=== PATIENT | male | born 1940 | race Caucasian/White ===

== ENCOUNTER 2018-07-25 18:20 | Inpatient (IN) | payer OTHER ==
--- NOTE | 2018-07-25 18:38 | PDOC ---
Rapid Medical Evaluation Chief Complaint: Injury Time Seen by Provider: 07/25/18 18:33 Medical Evaluation: Allergies Allergy/AdvReac Type Severity Reaction Status Date / Time No Known Allergies Allergy Verified 09/12/15 22:49 07/25/18 18:36 The patient c/o: cough x 1 week, went to md office today and was tachycardic and weak Patient on brief exam: 101.2, tachy, 92 on RA Patient ordered for: septic w/u Patient to proceed to the ED Discharge Disposition - Diagnosis Fever - Discharge Dispostion Condition at time of disposition: Stable - Referrals Referrals: Sabrina Vides MD [Primary Care Provider] - - Patient Instructions - Post Discharge Activity
[2018-07-25] MEDS ORDERED: SODIUM CHLORIDE 1,000 ML IV STA (18:40)
[2018-07-25] MEDS ORDERED: ACETAMINOPHEN 500 MG TABLET (FP) PO ONE (18:40)
[2018-07-25] MEDS ORDERED: AZITHROMYCIN IVPB 500 MG in DEXTROSE 5%-WATER - 250 ML IVPB ONE (20:18)
[2018-07-25] MEDS ORDERED: CEFTRIAXONE 1 GM in DEXTROSE 5%-WATER - 100 ML IVPB ONE (20:18)
[2018-07-25] MEDS ORDERED: CEFTRIAXONE 1 GM/50 ML BAG ONE (20:50)
[2018-07-25] MEDS ORDERED: AZITHROMYCIN IVPB 500 MG/250 ML BAG IVPB ONE (20:50)
[2018-07-25 20:51] LABS: BASO % 0.4 % (0-2.0); EOS % 0.1 % (0-4.5); HEMATOCRIT 42.5 % (35.4-49); HEMOGLOBIN 14.4 GM/dL (11.7-16.9); LYMPH % 23.5 % (8-40); MCH 31.5 pg (25.7-33.7); MCHC 33.8 g/dl (32.0-35.9); MEAN CELL VOLUME 93.2 fl (80-96); MEAN PLT VOLUME 8.5 fl (7.5-11.1); MONO % 11.2 % (3.8-10.2); NEUT % 64.8 % (42.8-82.8); PLATELET COUNT 159 K/MM3 (134-434); RBC 4.56 M/mm3 (4.00-5.60); RDW 13.5 % (11.9-15.9); WHITE BLOOD COUNT 7.9 K/mm3 (4.0-10.0)
[2018-07-25 20:56] LABS: VENOUS PC02 46.6 mmHg (41-51); VENOUS PH 7.39 (7.31-7.41); VENOUS PO2 31.3 mmHg (30-40)
[2018-07-25 21:15] LABS: INR 1.13 (0.83-1.09); PROTHROMBIN TIME (PATIENT) 13.4 SEC (9.7-13.0)
[2018-07-25 21:17] LABS: ACTIVATED PTT 35.3 SECONDS (25.2-36.5)
[2018-07-25 21:25] LABS: ALBUMIN 3.8 g/dl (3.4-5.0); BILIRUBIN,TOTAL 0.9 mg/dL (0.2-1); CREATININE 1.6 mg/dL (0.55-1.3); POTASSIUM 4.6 mmol/L (3.5-5.1); TOT PROT 7.5 g/dl (6.4-8.2)
[2018-07-26] MEDS ORDERED: PATIENT'S OWN MEDICATION (NON-FORMULARY) (Insulin (Novolog 70/30) [Novolog Mix 70/30 Flexp SQ SCH (00:45)
--- NOTE | 2018-07-26 00:47 | HP ---
CHIEF COMPLAINT: mid back pain PCP:Dr. Melendez HISTORY OF PRESENT ILLNESS: Mr. Govea is a 78 year old male with past medical history significant for hypertension, coronary artery disease, COPD, and NIDDM who presents to the emergency with mid back pain. He was found to have a fever of 101.2, tachycardia and mild hypoxemia on room air of 92% CT scan of chest demonstrated a focal consolidation in the anterior segment of the right upper lobe and consistent with a right lobe pneumonia. He was also found to have multiple subpleural bulla in the upper lobes more pronounced on the right side. He was given a dose of IV azithromycin and ceftriaxone. Labs notable for a normal WBC and lactic acid of 2.2, with repeat lactic acid of 1.7, and creatinine 1.6.He also complained of abdominal tenderness on light palpationsand abdomen was distended. CT scan of abdomen and pelvis showed no bowel distention, fatty liver or no acute diverticulitis or acute findings. He is being admitted to the Medicine Service for further medical treatment. Recent Travel:denies PAST MEDICAL HISTORY: Hypertension Coronary artery disease COPD NIDDM PAST SURGICAL HISTORY: denies Social History: Smoking:denies Alcohol:yes Drugs: denies Family History:noncontributory Allergies No Known Allergies Allergy (Verified 09/12/15 22:49) HOME MEDICATIONS: Home Medications Medication Instructions Recorded Atorvastatin Ca [Lipitor] 40 mg PO HS 08/06/14 Clopidogrel Bisulfate [Clopidogrel] 75 mg PO DAILY 08/06/14 Glipizide [Glipizide ER] 5 mg PO DAILY 08/06/14 Insulin (Novolog 70/30) [Novolog 10 units SQ ASDIR 08/06/14 Mix 70/30 Flexpen -] Losartan Potassium 100 mg PO DAILY 08/06/14 Tamsulosin HCl 0.4 mg PO DAILY 08/06/14 REVIEW OF SYSTEMS CONSTITUTIONAL: Absent: fever, chills, diaphoresis, generalized weakness, malaise, loss of appetite, weight change HEENT: Absent: rhinorrhea, nasal congestion, throat pain, throat swelling, difficulty swallowing, mouth swelling, ear pain, eye pain, visual changes CARDIOVASCULAR: Absent: chest pain, syncope, palpitations, irregular heart rate, lightheadedness , peripheral edema,tachycardia RESPIRATORY: Absent: cough, shortness of breath, dyspnea with exertion, orthopnea, wheezing, stridor, hemoptysis GASTROINTESTINAL: Absent: abdominal pain, abdominal distension, nausea, vomiting, diarrhea, constipation, melena, hematochezia GENITOURINARY: Absent: dysuria, frequency, urgency, hesitancy, hematuria, flank pain, genital pain MUSCULOSKELETAL: Absent: myalgia, arthralgia, joint swelling, mid back pain, neck pain SKIN: Absent: rash, itching, pallor HEMATOLOGIC/IMMUNOLOGIC: Absent: easy bleeding, easy bruising, lymphadenopathy, frequent infections ENDOCRINE: Absent: unexplained weight gain, unexplained weight loss, heat intolerance, cold intolerance NEUROLOGIC: Absent: headache, focal weakness or paresthesias, dizziness, unsteady gait, seizure, mental status changes, bladder or bowel incontinence PSYCHIATRIC: Absent: anxiety, depression, suicidal or homicidal ideation, hallucinations. PHYSICAL EXAMINATION Vital Signs - 24 hr 07/25/18 07/26/18 18:33 00:34 Temperature 101.2 F H Pulse Rate 131 H Pulse Rate [ 108 H Left] Respiratory 16 26 H Rate Blood Pressure 119/78 Blood Pressure 137/77 [Left] O2 Sat by Pulse 92 L 95 Oximetry (%) GENERAL: awake, alert, and fully oriented no acute distress HEAD: normal EYES: pupils equal, round and reactive to light EARS, NOSE, THROAT: ears normal, nares patent NECK: normal range of motion LUNGS: crackles present to right side no wheezes no use of accessory muscles HEART: rate regular and tachycardic normal S1 and S2 ABDOMEN: soft nontender not distended normoactive bowel sounds MUSCULOSKELETAL: normal range of motion at all joints UPPER EXTREMITIES: 2+ pulses, warm LOWER EXTREMITIES: 2+ pulses, warm well-perfused no pitting edema NEUROLOGICAL: no neuro focal deficits PSYCHIATRIC: cooperative good eye contact SKIN: warm,dry and no lesions Laboratory Results - last 24 hr 07/25/18 07/25/18 07/25/18 18:38 20:31 20:31 WBC 7.9 RBC 4.56 Hgb 14.4 Hct 42.5 MCV 93.2 MCH 31.5 MCHC 33.8 RDW 13.5 Plt Count 159 MPV 8.5 Absolute Neuts (auto) 5.1 Neutrophils % 64.8 D Lymphocytes % 23.5 D Monocytes % 11.2 H Eosinophils % 0.1 D Basophils % 0.4 Nucleated RBC % 0 PT with INR 13.40 H INR 1.13 H PTT (Actin FS) 35.3 VBG pH POC VBG pCO2 POC VBG pO2 VBG HCO3 VBG O2 Sat (Brian) VBG Base Excess Sodium Potassium Chloride Carbon Dioxide Anion Gap BUN Creatinine Est GFR (CKD-EPI)AfAm Est GFR (CKD-EPI)NonAf Random Glucose Lactic Acid 2.2 H* Calcium Total Bilirubin AST ALT Alkaline Phosphatase Troponin I Total Protein Albumin 07/25/18 07/25/18 07/25/18 20:31 20:31 20:31 WBC RBC Hgb Hct MCV MCH MCHC RDW Plt Count MPV Absolute Neuts (auto) Neutrophils % Lymphocytes % Monocytes % Eosinophils % Basophils % Nucleated RBC % PT with INR INR PTT (Actin FS) VBG pH 7.39 POC VBG pCO2 46.6 POC VBG pO2 31.3 VBG HCO3 27.4 VBG O2 Sat (Brian) 54.2 L VBG Base Excess 2.2 H Sodium 136 Potassium 4.6 Chloride 99 Carbon Dioxide 28 Anion Gap 9 BUN 20 H Creatinine 1.6 H Est GFR (CKD-EPI)AfAm 47.46 Est GFR (CKD-EPI)NonAf 40.95 Random Glucose 201 H Lactic Acid Calcium 9.0 Total Bilirubin 0.9 AST 127 H ALT 73 H Alkaline Phosphatase 120 H Troponin I < 0.02 Total Protein 7.5 Albumin 3.8 07/25/18 22:10 WBC RBC Hgb Hct MCV MCH MCHC RDW Plt Count MPV Absolute Neuts (auto) Neutrophils % Lymphocytes % Monocytes % Eosinophils % Basophils % Nucleated RBC % PT with INR INR PTT (Actin FS) VBG pH POC VBG pCO2 POC VBG pO2 VBG HCO3 VBG O2 Sat (Brian) VBG Base Excess Sodium Potassium Chloride Carbon Dioxide Anion Gap BUN Creatinine Est GFR (CKD-EPI)AfAm Est GFR (CKD-EPI)NonAf Random Glucose Lactic Acid 1.7 Calcium Total Bilirubin AST ALT Alkaline Phosphatase Troponin I Total Protein Albumin ASSESSMENT/PLAN: 78 year old male with past medical history significant for hypertension, coronary artery disease, COPD, and NIDDM who presented with mid back pain. He was found to have a fever of 101.2, tachycardia and mild hypoxemia on room air of 92% #1 Pneumonia(Community Acquired) Workup-CT scan of chest demonstrated a focal consolidation in the anterior segment of the right upper lobe and consistent with a right lobe pneumonia. He was also found to have multiple subpleural bulla in the upper lobes more pronounced the right side. He was given a dose of IV azithromycin and ceftriaxone. Labs notable for a normal WBC and lactic acid of 2.2 with repeat lactic acid of 1.7. - Continue with IV Azithromycin 250 mg daily and Ceftriaxone 1 mg daily - Tylenol prn for fever - Pulmonary -Dr. Hathaway consulted #2 Hypertension Controlled Continue with losartan #3 ? Chronic Renal Insufficiency Likely Secondary to Diabetes Creatinine 1.6. Continue to monitor closely as patient is on arb #4 Coronary Artery Disease Currently asymptomatic of chest pain. Troponin is normal. Continue with plavix and statin. #5 Hyperlipidemia -Continue with statin therapy #6 NIDDM Accucheks before meals and at bedtime Insulin(Novolin) as per sliding scale Check hemoglobin a1c #7 BPH Continue with tamulosin FEN ADA,low sodium diet DVT TEDS,SCD's Visit type - Emergency Visit Emergency Visit: Yes ED Registration Date: 07/25/18 Care time: The patient presented to the Emergency Department on the above date and was hospitalized for further evaluation of their emergent condition. - New Patient This patient is new to me today: Yes Date on this admission: 07/26/18 - Critical Care Critical Care patient: No
--- NOTE | 2018-07-26 00:57 | PDOC ---
Documentation entered by Velma Fraser SCRIBE, acting as scribe for Gretchen Herrera DO. Gretchen Herrera DO: This documentation has been prepared by the johny, Velma Fraser SCRIBE, under my direction and personally reviewed by me in its entirety. I confirm that the documentation accurately reflects all work , treatment, procedures, and medical decision making performed by me. History of Present Illness - General Chief Complaint: SIRS, Suspected/Possible Stated Complaint: REF BY DOCTOR Time Seen by Provider: 07/25/18 18:33 History Source: Patient Exam Limitations: No Limitations - History of Present Illness Initial Comments: 07/25/18 19:54 The patient is a 78 year old male with reported past medical history significant for HTN, CAD, COPD, and DM presents to the emergency department with back pain. The patient presents with lower back pain, localized to the mid back. Denies fever, chills, cough, nausea, vomiting. Allergies: NKDA Social history: Denies the use of tobacco, or recreational drugs. Reports the use of alcohol. Surgical history: None reported. PCP: Dr. Vides. Past History - Past Medical History Allergies/Adverse Reactions: Allergies Allergy/AdvReac Type Severity Reaction Status Date / Time No Known Allergies Allergy Verified 09/12/15 22:49 Home Medications: Ambulatory Orders Atorvastatin Ca [Lipitor] 40 mg PO HS 08/06/14 Clopidogrel Bisulfate [Clopidogrel] 75 mg PO DAILY 08/06/14 Glipizide [Glipizide ER] 5 mg PO DAILY 08/06/14 Insulin (Novolog 70/30) [Novolog Mix 70/30 Flexpen -] 10 units SQ ASDIR Losartan Potassium 100 mg PO DAILY 08/06/14 Tamsulosin HCl 0.4 mg PO DAILY 08/06/14 Cardiac Disorders: Yes (CAD) COPD: Yes Diabetes: Yes Disorders: Yes (BPH) HTN: Yes Hypercholesterolemia: Yes - Suicide/Smoking/Psychosocial Hx Smoking History: Never smoked Have you smoked in the past 12 months: No Information on smoking cessation initiated: No Hx Alcohol Use: No Drug/Substance Use Hx: No Substance Use Type: Alcohol Hx Substance Use Treatment: No Review of Systems - Review of Systems Able to Perform ROS?: Yes Comments:: 07/25/18 19:35 GENERAL/CONSTITUTIONAL: No fever or chills. No weakness. HEAD, EYES, EARS, NOSE AND THROAT: No change in vision. No ear pain or discharge. No sore throat. GASTROINTESTINAL: No nausea, vomiting, diarrhea or constipation. GENITOURINARY: No dysuria, frequency, or change in urination. CARDIOVASCULAR: No chest pain or shortness of breath. RESPIRATORY: No cough, wheezing, or hemoptysis. MUSCULOSKELETAL: +lower back pain. No joint or muscle swelling or pain. No neck pain. SKIN: No rash NEUROLOGIC: No headache, vertigo, loss of consciousness, or change in strength/ sensation. ENDOCRINE: No increased thirst. No abnormal weight change. HEMATOLOGIC/LYMPHATIC: No anemia, easy bleeding, or history of blood clots. ALLERGIC/IMMUNOLOGIC: No hives or skin allergy. *Physical Exam - Vital Signs Last Vital Signs Temp Pulse Resp BP Pulse Ox 101.2 F H 131 H 16 119/78 92 L 07/25/18 18:33 07/25/18 18:33 07/25/18 18:33 07/25/18 18:33 07/25/18 18:33 - Physical Exam Comments: 07/25/18 19:35 GENERAL: Awake, in no acute distress HEAD: No signs of trauma EYES: PERRLA, EOMI, sclera anicteric, conjunctiva clear, visual acuity grossly intact ENT:. Moist mucosa NECK: Normal ROM, supple, no lymphadenopathy, JVD, or masses LUNGS: Breath sounds equal, No wheezes, Crackles right mid/base Normal work of breathing. HEART: Regular rate and rhythm, normal S1 and S2, no murmurs, rubs or gallops ABDOMEN: Soft, tenderness LLQ, normoactive bowel sounds. No guarding, no rebound. No masses. Non-distended. CHEST WALL: BACK: No midline tenderness. EXTREMITIES: Normal range of motion, no edema. No clubbing or cyanosis. No erythema, or tenderness NEUROLOGICAL: Alert, and oriented x4, Cranial nerves II through XII grossly intact. Normal speech, normal gait. 07/26/18 00:50 ED Treatment Course - LABORATORY CBC & Chemistry Diagram: 07/25/18 20:31 07/25/18 20:31 - ADDITIONAL ORDERS Additional order review: Laboratory Results 06/04/19 06/04/19 06/04/19 22:10 20:31 20:31 PT with INR INR PTT (Actin FS) VBG pH POC VBG pCO2 POC VBG pO2 VBG HCO3 VBG O2 Sat (Brian) VBG Base Excess Sodium 136 Potassium 4.6 Chloride 99 Carbon Dioxide 28 Anion Gap 9 BUN 20 H Creatinine 1.6 H Est GFR (CKD-EPI)AfAm 47.46 Est GFR (CKD-EPI)NonAf 40.95 Random Glucose 201 H Lactic Acid 1.7 Calcium 9.0 Total Bilirubin 0.9 AST 127 H ALT 73 H Alkaline Phosphatase 120 H Troponin I < 0.02 Total Protein 7.5 Albumin 3.8 07/25/18 07/25/18 07/25/18 20:31 20:31 18:38 PT with INR 13.40 H INR 1.13 H PTT (Actin FS) 35.3 VBG pH 7.39 POC VBG pCO2 46.6 POC VBG pO2 31.3 VBG HCO3 27.4 VBG O2 Sat (Brian) 54.2 L VBG Base Excess 2.2 H Sodium Potassium Chloride Carbon Dioxide Anion Gap BUN Creatinine Est GFR (CKD-EPI)AfAm Est GFR (CKD-EPI)NonAf Random Glucose Lactic Acid 2.2 H* Calcium Total Bilirubin AST ALT Alkaline Phosphatase Troponin I Total Protein Albumin 07/25/18 20:31 RBC 4.56 MCV 93.2 MCHC 33.8 RDW 13.5 MPV 8.5 Neutrophils % 64.8 D Lymphocytes % 23.5 D Monocytes % 11.2 H Eosinophils % 0.1 D Basophils % 0.4 - RADIOLOGY Radiology Studies Ordered: Category Date Time Status ABDOMEN & PELVIS CT W/O CONTR [CT] Stat CT Scan 07/25/18 22:[address] WITHOUT CONTRAST [CT] Stat CT Scan 07/25/18 22:50 Taken - Medications Given in the ED: ED Medications Discontinued Medications Generic Name Dose Route Start Last Admin Trade Name Freq PRN Reason Stop Dose Admin Acetaminophen 975 mg 07/25/18 18:40 07/25/18 18:52 Tylenol - PO 07/25/18 18:41 975 mg ONCE ONE Administration Medical Decision Making - Critical Care Time Total Critical Care Time (minutes): 45 Critical Care Statement: The care of this patient involved high complexity decision making to prevent further life threatening deterioration of the patient 's condition and/or to evaluate & treat vital organ system(s) failure or risk of failure. - Medical Decision Making 07/26/18 00:52 78 yo male with fever ,cough,low back pain Chest x-ray, CT scan of the chest abdomen and pelvis performed and I significant for right-sided pulmonary infiltrates, in the setting likely consistent with community-acquired pneumonia Azithromycin as well as Rocephin IV given in the emergency department IV fluid normal saline 1 L bolus given as well, initial lactic acid 2.2 now decreased to 1.7 Renal insufficiency is close to baseline Case discussed with medical service for admission *DC/Admit/Observation/Transfer Diagnosis at time of Disposition: Pneumonia, Sepsis - Discharge Dispostion Condition at time of disposition: Stable Decision to Admit order: Yes - Referrals - Patient Instructions - Post Discharge Activity - Attestations Physician Attestion: 07/26/18 00:56 I, Dr Gretchen Herrera, attest that this document has been prepared under my direction and personally reviewed by me in its entirety. I further attest, that it accurately reflects all work, procedures and medical decision making performed by me.
[2018-07-26 06:22] VITALS: BMI 32.7
[2018-07-26] MEDS: glipiZIDE-XL 5 MG TAB.ER.24 PO SCH (06:49)
[2018-07-26] MEDS ORDERED: INSULIN SLIDING SCALE (NOVOLOG) 1 VIAL SQ SCH (07:00)
--- NOTE | 2018-07-26 08:32 | PN ---
Progress Note, Physician History of Present Illness: 78 year old male with past medical history significant for hypertension, coronary artery disease, COPD, and NIDDM who presented with mid back pain. He was found to have a fever of 101.2, tachycardia and mild hypoxemia on room air of 92% - Current Medication List Current Medications: Active Medications Atorvastatin Calcium (Lipitor -) 40 mg PO HS [facility] Clopidogrel Bisulfate (Plavix -) 75 mg PO DAILY [facility] Glipizide (Glucotrol Xl -) 5 mg PO AM [facility] Last Admin: 07/26/18 06:49 Dose: 5 mg Azithromycin 250 mg/ Dextrose 250 mls @ 250 mls/hr IVPB DAILY [facility] Ceftriaxone Sodium 1 gm/ (Dextrose) 100 mls @ 200 mls/hr IVPB DAILY [facility]; Protocol Insulin Aspart (Novolog Vial Sliding Scale -) 1 vial SQ BIDAC [facility]; Protocol Last Admin: 07/26/18 06:48 Dose: 2 units Losartan Potassium (Cozaar -) 100 mg PO DAILY [facility] Tamsulosin HCl (Flomax -) 0.4 mg PO DAILY@0830 [facility] - Objective Vital Signs: Vital Signs Temperature 99.2 F 07/26/18 06:11 Pulse Rate 97 H 07/26/18 06:11 Respiratory Rate 21 H 07/26/18 06:11 Blood Pressure 136/80 07/26/18 06:11 O2 Sat by Pulse Oximetry (%) 96 07/26/18 06:11 Cardiovascular: Yes: Tachycardia, S1, S2 Respiratory: Yes: Diminished, On Nasal O2, Rhonchi Gastrointestinal: Yes: Normal Bowel Sounds, Soft Labs: CBC, BMP 07/25/18 20:31 07/25/18 20:31 INR, PTT INR 1.13 (0.83-1.09) H 07/25/18 20:31 Problem List - Problems (1) Pneumonia Assessment/Plan: Workup-CT scan of chest demonstrated a focal consolidation in the anterior segment of the right upper lobe and consistent with a right lobe pneumonia. He was also found to have multiple subpleural bulla in the upper lobes more pronounced the right side. He was given a dose of IV azithromycin and ceftriaxone. Labs notable for a normal WBC and lactic acid of 2.2 with repeat lactic acid of 1.7. - Continue with IV Azithromycin 250 mg daily and Ceftriaxone 1 mg daily - Tylenol prn for fever - Pulmonary -Dr. Hathaway consulted -ID consult Code(s): J18.9 - PNEUMONIA, UNSPECIFIED ORGANISM (2) COPD (chronic obstructive pulmonary disease) Assessment/Plan: -as above -Nebs -Pulm -Follow up ct and pft Code(s): J44.9 - CHRONIC OBSTRUCTIVE PULMONARY DISEASE, UNSPECIFIED (3) BPH (benign prostatic hyperplasia) Assessment/Plan: -flomax Code(s): N40.0 - BENIGN PROSTATIC HYPERPLASIA WITHOUT LOWER URINRY TRACT SYMP (4) Diabetes mellitus Assessment/Plan: Accucheks before meals and at bedtime Insulin(Novolin) as per sliding scale Check hemoglobin a1c Code(s): E11.9 - TYPE 2 DIABETES MELLITUS WITHOUT COMPLICATIONS (5) HOMERO (acute kidney injury) Assessment/Plan: -monitor on current meds -Renal conult Code(s): N17.9 - ACUTE KIDNEY FAILURE, UNSPECIFIED (6) Lymphadenopathy Assessment/Plan: will need outpatient follow up Code(s): R59.1 - GENERALIZED ENLARGED LYMPH NODES
[2018-07-26] MEDS ORDERED: cefTRIAXone SODIUM 1 GM VIAL ONE (09:17)
[2018-07-26] MEDS ORDERED: DEXTROSE 5%-WATER 100 ML IVPB ONE (09:17)
[2018-07-26] MEDS ORDERED: PT OWN MED DRAWER 7, Y5N ONE (09:17)
[2018-07-26] MEDS: LOSARTAN POTASSIUM 50 MG TABLET (FP) PO SCH (09:24)
[2018-07-26] MEDS: TAMSULOSIN HCL 0.4 MG CAP PO SCH (09:24)
[2018-07-26] MEDS: CLOPIDOGREL BISULFATE 75 MG TABLET (FP) PO SCH (09:24)
[2018-07-26] MEDS: AZITHROMYCIN IVPB 250 MG in DEXTROSE 5%-WATER - 250 ML IVPB SCH (10:00)
[2018-07-26] MEDS ORDERED: CEFTRIAXONE 1 GM in DEXTROSE 5%-WATER 100 ML IVPB SCH (10:00)
[2018-07-26] MEDS ORDERED: CEFTRIAXONE 250 MG in DEXTROSE 5%-WATER - 50 ML IVPB SCH (10:00)
--- NOTE | 2018-07-26 10:08 | EKG ---
Test Reason : Blood Pressure : / mmHG Vent. Rate : 119 BPM Atrial Rate : 119 BPM P-R Int : 190 ms QRS Dur : 076 ms QT Int : 296 ms P-R-T Axes : 041 038 029 degrees QTc Int : 416 ms SINUS TACHYCARDIA OTHERWISE NORMAL ECG WHEN COMPARED WITH ECG OF 06-AUG-2014 13:53, [place] INTERVAL HAS DECREASED Confirmed by MANDO LARA MD ([id number]) on 07/26/2018 10:07:52 AM Referred By: Confirmed By:MANDO LARA MD
--- NOTE | 2018-07-26 10:43 | EKG ---
Test Reason : Blood Pressure : / mmHG Vent. Rate : 108 BPM Atrial Rate : 108 BPM P-R Int : 210 ms QRS Dur : 084 ms QT Int : 326 ms P-R-T Axes : 053 053 031 degrees QTc Int : 436 ms SINUS TACHYCARDIA WITH 1ST DEGREE A-V BLOCK WITH OCCASIONAL PREMATURE VENTRICULAR COMPLEXES NONSPECIFIC T WAVE ABNORMALITY ABNORMAL ECG WHEN COMPARED WITH ECG OF 25-JUL-2018 19:46, PREMATURE VENTRICULAR COMPLEXES ARE NOW PRESENT Confirmed by JANE CHÁVEZ, MANDO ([id number]) on 07/26/2018 10:43:15 AM Referred By: Renate CASON Confirmed By:MANDO LARA MD
--- NOTE | 2018-07-26 11:44 | PN ---
Progress Note (short form) - Note Progress Note: ID CONSULT DICTATED COMMUNITY ACQUIRED V. ATYPICAL R PNEUMONIA R/O SEPSIS SECONDARY TO PNEUMONA LACTIC ACIDOSIS AZOTEMIA AWAIT C/S EMPIRIC ZITHROMAX/CEFTRIAXONE
[2018-07-26 11:52] LABS: URINE APPEARANCE CLEAR; URINE BILIRUBIN NEGATIVE (NEGATIVE); URINE COLOR YELLOW; URINE GLUCOSE (UA) NEGATIVE (NEGATIVE); URINE KETONE TRACE (NEGATIVE); URINE LEUK ESTERASE NEGATIVE (NEGATIVE); URINE NITRITE NEGATIVE (NEGATIVE); URINE PROTEIN TRACE (NEGATIVE)
--- NOTE | 2018-07-26 12:18 | CONS ---
DATE OF CONSULTATION: 07/26/2018 HISTORY OF PRESENT ILLNESS: The patient is a 78-year-old male who is evaluated for pneumonia. The patient presented to the hospital on July 25, 2018, with worsening low back pain and cough for one week. In the emergency room, he was noted to have fever of 101.2. Chest x-ray showed increased markings at the left base. A CT scan was subsequently performed and shows moderate COPD changes involving the upper lobes, right greater than left, a focal air space opacity in the right upper lobe with cystic densities in the center, mild bronchiectatic changes in the left lower lobe and left lung base. In the emergency room, patient had a temperature of 101.2 and tachycardia with a heart rate of 131. He reports cough, which is productive of whitish sputum. He denies any chest pain or hemoptysis. He denies any dyspnea. The patient lives at home alone. He is a retired machinist class b. Denies occupational exposure to fumes. He is a nonsmoker, originally from [place], has been living in the [facility] for many years. He states he is up to date with respective influenza and pneumococcal vaccines. He denies any ill contacts. No recent travel. No recent hospitalizations. PAST MEDICAL HISTORY: Positive for hypertension, coronary artery disease, COPD, diabetes mellitus, BPH. ALLERGIES: No known allergies. MEDICATIONS: Lipitor, Plavix, glipizide, insulin, losartan, Flomax. SOCIAL HISTORY: As per HPI. SYSTEMS REVIEW: Neurologic: No loss of consciousness, seizure activity, or focal weakness. Cardiac: Negative for chest pain or palpitations. Respiratory: As per HPI. Gastrointestinal: Negative for vomiting or diarrhea. Genitourinary: Negative for urinary tract infection. LABORATORY DATA: White count 7.9, hematocrit 42.5, platelet count 159. BUN 20, creatinine 1.6, total bilirubin 0.9, alkaline phosphatase 120, AST 127, ALT 73, lactic acid 2.2. PHYSICAL EXAMINATION: General: He is supine in bed, somnolent. He is not acutely toxic. His breathing is nonlabored on nasal cannula O2. Vital signs: Temperature 99.4, maximum temperature 101.2, blood pressure 129/69, pulse 109 and regular, respirations 20 per minute. HEENT: Sclerae anicteric. Heart: Heart sounds S1, S2. Lungs: Diminished breath sounds bilaterally. Abdomen: Soft. No tenderness elicited. No mass, rebound, or rigidity. Extremities: Negative for edema. IMPRESSION: 1. Community-acquired versus atypical right-sided pneumonia. 2. Possible sepsis secondary to pneumonia. 3. Lactic acidosis. 4. Chronic obstructive pulmonary disease exacerbation. 5. Diabetes mellitus. 6. Azotemia. Await cultures, obtain urine legionella and pneumococcal antigens, sputum culture, continue empiric antibiotic coverage community-acquired versus atypical pneumonia with Zithromax and ceftriaxone. Will follow. Thank you for the kind referral. DANTE PRATER M.D. [id number]
--- NOTE | 2018-07-26 12:42 | CONSULT ---
Consult Consult Specialty:: endocrine Referred by:: dr.iyad lopez Reason for Consultation:: diabetes mellitus 2 - History of Present Illness Chief Complaint: high sugars History of Present Illness: 78 year old male with past medical history significant for DM 2,hypertension, cad, COPD, who presents to the emergency with mid back pain. He was found to have a fever of 101.2, tachycardia and mild hypoxemia on room air of 92% CT scan of chest demonstrated a focal consolidation in the anterior segment of the right upper lobe and consistent with a right lobe pneumonia,has had elevated sugars,numbness feet,no hypoglycemia,no chest pain,nausea or vomiting - Past Medical History Cardio/Vascular: Yes: CAD, HTN, Hyperlipdemia Pulmonary: Yes: COPD Renal/: Yes: BPH Endocrine: Yes: Diabetes Mellitus - Past Surgical History Past Surgical History: Yes: None - Alcohol/Substance Use Hx Alcohol Use: No - Smoking History Smoking history: Never smoked Have you smoked in the past 12 months: No Home Medications - Allergies Allergies/Adverse Reactions: Allergies Allergy/AdvReac Type Severity Reaction Status Date / Time No Known Allergies Allergy Verified 07/26/18 05:00 - Home Medications Home Medications: Ambulatory Orders Atorvastatin Ca [Lipitor] 40 mg PO HS 08/06/14 Clopidogrel Bisulfate [Clopidogrel] 75 mg PO DAILY 08/06/14 Glipizide [Glipizide ER] 5 mg PO DAILY 08/06/14 Insulin (Novolog 70/30) [Novolog Mix 70/30 Flexpen -] 10 units SQ ASDIR Losartan Potassium 100 mg PO DAILY 08/06/14 Tamsulosin HCl 0.4 mg PO DAILY 08/06/14 Review of Systems - Review of Systems Constitutional: reports: Weakness Eyes: reports: No Symptoms HENT: reports: No Symptoms Neck: reports: No Symptoms Cardiovascular: reports: Shortness of Breath Respiratory: reports: Exercise Intolerance, SOB on Exertion Gastrointestinal: reports: Bloating, Constipation Genitourinary: reports: No Symptoms Breasts: reports: No Symptoms Reported Musculoskeletal: reports: Joint Pain, Joint Swelling, Muscle Cramps Integumentary: reports: No Symptoms Neurological: reports: Numbness Physical Exam Vital Signs: Vital Signs Temperature 99.4 F 07/26/18 08:59 Pulse Rate 109 H 07/26/18 08:59 Respiratory Rate 20 07/26/18 08:59 Blood Pressure 129/67 07/26/18 08:59 O2 Sat by Pulse Oximetry (%) 96 07/26/18 06:11 Constitutional: Yes: Anxious Eyes: Yes: EOM Intact HENT: Yes: Normocephalic Neck: Yes: Trachea Midline Cardiovascular: Yes: Regular Rate and Rhythm Respiratory: Yes: Rhonchi, SOB Gastrointestinal: Yes: Normal Bowel Sounds ...Rectal Exam: Yes: Deferred Musculoskeletal: Yes: WNL, Muscle Weakness Extremities: Yes: WNL Neurological: Yes: Alert, Oriented Labs: CBC, BMP 07/25/18 20:31 07/25/18 20:31 Problem List - Problems (1) HOMERO (acute kidney injury) Code(s): N17.9 - ACUTE KIDNEY FAILURE, UNSPECIFIED (2) COPD (chronic obstructive pulmonary disease) Code(s): J44.9 - CHRONIC OBSTRUCTIVE PULMONARY DISEASE, UNSPECIFIED (3) Pneumonia Code(s): J18.9 - PNEUMONIA, UNSPECIFIED ORGANISM (4) Sepsis Code(s): A41.9 - SEPSIS, UNSPECIFIED ORGANISM (5) Acute diverticulitis Code(s): K57.92 - DVTRCLI OF INTEST, PART UNSP, W/O PERF OR ABSCESS W/O BLEED (6) Diabetes mellitus Code(s): E11.9 - TYPE 2 DIABETES MELLITUS WITHOUT COMPLICATIONS Assessment/Plan Current Active Problems diabetes mellitus 2,neuropathy HOMERO (acute kidney injury) (Acute) COPD (chronic obstructive pulmonary disease) (Acute) Lymphadenopathy (Acute) Pneumonia (Acute) Sepsis (Acute) Abnormal Lab Results 07/25/18 07/25/18 07/25/18 18:38 20:31 20:31 Monocytes % 11.2 H PT with INR 13.40 H INR 1.13 H VBG O2 Sat (Brian) VBG Base Excess BUN Creatinine Random Glucose Hemoglobin A1c % Lactic Acid 2.2 H* AST ALT Alkaline Phosphatase Urine Ketones 07/25/18 07/25/18 07/26/18 20:31 20:31 05:42 Monocytes % PT with INR INR VBG O2 Sat (Brian) 54.2 L VBG Base Excess 2.2 H BUN 20 H Creatinine 1.6 H Random Glucose 201 H Hemoglobin A1c % 9.3 H Lactic Acid AST 127 H ALT 73 H Alkaline Phosphatase 120 H Urine Ketones 07/26/18 06:25 Monocytes % PT with INR INR VBG O2 Sat (Brian) VBG Base Excess BUN Creatinine Random Glucose Hemoglobin A1c % Lactic Acid AST ALT Alkaline Phosphatase Urine Ketones Trace H Laboratory Results - last 24 hr 07/25/18 07/25/18 07/25/18 18:38 20:31 20:31 WBC 7.9 RBC 4.56 Hgb 14.4 Hct 42.5 MCV 93.2 MCH 31.5 MCHC 33.8 RDW 13.5 Plt Count 159 MPV 8.5 Absolute Neuts (auto) 5.1 Neutrophils % 64.8 D Lymphocytes % 23.5 D Monocytes % 11.2 H Eosinophils % 0.1 D Basophils % 0.4 Nucleated RBC % 0 PT with INR 13.40 H INR 1.13 H PTT (Actin FS) 35.3 VBG pH POC VBG pCO2 POC VBG pO2 VBG HCO3 VBG O2 Sat (Brian) VBG Base Excess Sodium Potassium Chloride Carbon Dioxide Anion Gap BUN Creatinine Est GFR (CKD-EPI)AfAm Est GFR (CKD-EPI)NonAf POC Glucometer Random Glucose Hemoglobin A1c % Lactic Acid 2.2 H* Calcium Total Bilirubin AST ALT Alkaline Phosphatase Troponin I Total Protein Albumin Urine Color Urine Appearance Urine pH Ur Specific [place] Urine Protein Urine Glucose (UA) Urine Ketones Urine Blood Urine Nitrite Urine Bilirubin Urine Urobilinogen Ur Leukocyte Esterase 07/25/18 07/25/18 07/25/18 20:31 20:31 20:31 WBC RBC Hgb Hct MCV MCH MCHC RDW Plt Count MPV Absolute Neuts (auto) Neutrophils % Lymphocytes % Monocytes % Eosinophils % Basophils % Nucleated RBC % PT with INR INR PTT (Actin FS) VBG pH 7.39 POC VBG pCO2 46.6 POC VBG pO2 31.3 VBG HCO3 27.4 VBG O2 Sat (Brian) 54.2 L VBG Base Excess 2.2 H Sodium 136 Potassium 4.6 Chloride 99 Carbon Dioxide 28 Anion Gap 9 BUN 20 H Creatinine 1.6 H Est GFR (CKD-EPI)AfAm 47.46 Est GFR (CKD-EPI)NonAf 40.95 POC Glucometer Random Glucose 201 H Hemoglobin A1c % Lactic Acid Calcium 9.0 Total Bilirubin 0.9 AST 127 H ALT 73 H Alkaline Phosphatase 120 H Troponin I < 0.02 Total Protein 7.5 Albumin 3.8 Urine Color Urine Appearance Urine pH Ur Specific [place] Urine Protein Urine Glucose (UA) Urine Ketones Urine Blood Urine Nitrite Urine Bilirubin Urine Urobilinogen Ur Leukocyte Esterase 07/25/18 07/26/18 07/26/18 22:10 05:42 06:25 WBC RBC Hgb Hct MCV MCH MCHC RDW Plt Count MPV Absolute Neuts (auto) Neutrophils % Lymphocytes % Monocytes % Eosinophils % Basophils % Nucleated RBC % PT with INR INR PTT (Actin FS) VBG pH POC VBG pCO2 POC VBG pO2 VBG HCO3 VBG O2 Sat (Brian) VBG Base Excess Sodium Potassium Chloride Carbon Dioxide Anion Gap BUN Creatinine Est GFR (CKD-EPI)AfAm Est GFR (CKD-EPI)NonAf POC Glucometer Random Glucose Hemoglobin A1c % 9.3 H Lactic Acid 1.7 Calcium Total Bilirubin AST ALT Alkaline Phosphatase Troponin I Total Protein Albumin Urine Color Yellow Urine Appearance Clear Urine pH 5.0 Ur Specific [place] 1.023 Urine Protein Trace Urine Glucose (UA) Negative Urine Ketones Trace H Urine Blood Negative Urine Nitrite Negative Urine Bilirubin Negative Urine Urobilinogen 1.0 Ur Leukocyte Esterase Negative 07/26/18 07/26/18 06:36 11:48 WBC RBC Hgb Hct MCV MCH MCHC RDW Plt Count MPV Absolute Neuts (auto) Neutrophils % Lymphocytes % Monocytes % Eosinophils % Basophils % Nucleated RBC % PT with INR INR PTT (Actin FS) VBG pH POC VBG pCO2 POC VBG pO2 VBG HCO3 VBG O2 Sat (Brian) VBG Base Excess Sodium Potassium Chloride Carbon Dioxide Anion Gap BUN Creatinine Est GFR (CKD-EPI)AfAm Est GFR (CKD-EPI)NonAf POC Glucometer 211 217 Random Glucose Hemoglobin A1c % Lactic Acid Calcium Total Bilirubin AST ALT Alkaline Phosphatase Troponin I Total Protein Albumin Urine Color Urine Appearance Urine pH Ur Specific [place] Urine Protein Urine Glucose (UA) Urine Ketones Urine Blood Urine Nitrite Urine Bilirubin Urine Urobilinogen Ur Leukocyte Esterase plan: levemir 20units am bgm achs novolog scale glipizide 5mg daily januvia 50mg daily diet nutrition evaluation
--- NOTE | 2018-07-26 13:22 | CONSULT ---
Consult Consult Specialty:: Nephrology Reason for Consultation:: HOMERO - History of Present Illness Chief Complaint: back pain History of Present Illness: Pt is a 78 year old male with pmhx of htn, cad, dm and copd who presented to the er with back pain. He was found to be febrile and found to have a PNA. He was found to have elevated creatinine and I was called to evaluate him. He denies history of CKD. He denies nsaid use. He denies hematuria or dysuria. he denies lower ext edema. He denies shortness of breath at rest. He says that he feels better today. Pt follows with Dr Vides. - History Source History Provided By: Patient - Past Medical History Cardio/Vascular: Yes: CAD, HTN, Hyperlipdemia Pulmonary: Yes: COPD Renal/: Yes: BPH Endocrine: Yes: Diabetes Mellitus - Past Surgical History Past Surgical History: Yes: None - Alcohol/Substance Use Hx Alcohol Use: No - Smoking History Smoking history: Never smoked Have you smoked in the past 12 months: No Home Medications - Allergies Allergies/Adverse Reactions: Allergies Allergy/AdvReac Type Severity Reaction Status Date / Time No Known Allergies Allergy Verified 07/26/18 05:00 - Home Medications Home Medications: Ambulatory Orders Atorvastatin Ca [Lipitor] 40 mg PO HS 08/06/14 Clopidogrel Bisulfate [Clopidogrel] 75 mg PO DAILY 08/06/14 Glipizide [Glipizide ER] 5 mg PO DAILY 08/06/14 Insulin (Novolog 70/30) [Novolog Mix 70/30 Flexpen -] 10 units SQ ASDIR Losartan Potassium 100 mg PO DAILY 08/06/14 Tamsulosin HCl 0.4 mg PO DAILY 08/06/14 Family Disease History - Family Disease History Family History: Denies Review of Systems - Review of Systems Constitutional: reports: Chills, Malaise Eyes: reports: No Symptoms HENT: reports: No Symptoms Neck: reports: No Symptoms Cardiovascular: reports: No Symptoms Respiratory: reports: Cough Gastrointestinal: reports: No Symptoms Genitourinary: reports: No Symptoms Musculoskeletal: reports: Back Pain Integumentary: reports: No Symptoms Neurological: reports: No Symptoms Endocrine: reports: No Symptoms Hematology/Lymphatic: reports: No Symptoms Psychiatric: reports: No Symptoms Physical Exam Vital Signs: Vital Signs Temperature 99.4 F 07/26/18 08:59 Pulse Rate 109 H 07/26/18 08:59 Respiratory Rate 20 07/26/18 08:59 Blood Pressure 129/67 07/26/18 08:59 O2 Sat by Pulse Oximetry (%) 96 07/26/18 06:11 Constitutional: Yes: Calm Eyes: Yes: Conjunctiva Clear HENT: Yes: Atraumatic Neck: Yes: Supple Cardiovascular: Yes: S1, S2 Respiratory: Yes: CTA Bilaterally, On Nasal O2 Gastrointestinal: Yes: Soft Renal/: Yes: WNL Musculoskeletal: Yes: WNL Edema: No Neurological: Yes: Oriented Psychiatric: Yes: Oriented Labs: CBC, BMP 07/25/18 20:31 07/25/18 20:31 Laboratory Tests 12/02/13 08/06/14 09/12/15 10:00 13:08 23:14 Creatinine 0.9 1.1 D 1.4 H D Urine Protein Urine Blood 07/25/18 07/26/18 20:31 06:25 Creatinine 1.6 H Urine Protein Trace Urine Blood Negative Imaging - Results Cat Scan: Report Reviewed Problem List - Problems (1) HOMERO (acute kidney injury) Code(s): N17.9 - ACUTE KIDNEY FAILURE, UNSPECIFIED (2) COPD (chronic obstructive pulmonary disease) Code(s): J44.9 - CHRONIC OBSTRUCTIVE PULMONARY DISEASE, UNSPECIFIED (3) Diabetes mellitus Code(s): E11.9 - TYPE 2 DIABETES MELLITUS WITHOUT COMPLICATIONS Assessment/Plan Current Medications Generic Name Dose Route Start Last Admin Trade Name Freq PRN Reason Stop Dose Admin Atorvastatin Calcium 40 mg 07/26/18 22:00 Lipitor - PO HS JOVANA Clopidogrel Bisulfate 75 mg 07/26/18 10:00 07/26/18 09:24 Plavix - PO 75 mg DAILY JOVANA Administration Glipizide 5 mg 07/26/18 07:00 07/26/18 06:49 Glucotrol Xl - PO 5 mg AM JOVANA Administration Azithromycin 250 mg/ Dextrose 250 mls @ 250 mls/hr 07/26/18 10:00 07/26/18 10 :00 IVPB 250 mls/hr DAILY JOVANA Administration Ceftriaxone Sodium 2 gm/ 100 mls @ 200 mls/hr 07/27/18 10:00 Dextrose IVPB DAILY JOVANA Protocol Insulin Aspart 1 vial 07/26/18 16:30 Novolog Vial Sliding Scale - SQ ACHS [facility] Protocol Insulin Detemir 20 units 07/27/18 07:00 Levemir Vial SQ AM [facility] Losartan Potassium 100 mg 07/26/18 10:00 07/26/18 09:24 Cozaar - PO 100 mg DAILY JOVANA Administration Sitagliptin Phosphate 50 mg 07/27/18 07:00 Januvia - PO DAILY@0700 [facility] Tamsulosin HCl 0.4 mg 07/26/18 08:30 07/26/18 09:24 Flomax - PO 0.4 mg DAILY@0830 JOVANA Administration Impression 1. HOMERO 2. DM 3. hypoxia 4. PNA 5. HTN 6. lactic acidosis Plan - check renal ultrasound - will call for outpt labs to assess baseline compliance mgr - avoid nsaids - check cpk level - will follow - check urine lytes and urine compliance mgr
--- NOTE | 2018-07-26 14:22 | PN ---
Progress Note (short form) - Note Progress Note: PULMONARY CONSULTATION DICTATED 07/26/18 IMP RUL PNEUMONIA HYPOXEMIA SECONDARY TO PNEUMONIA COPD PARATRACHEAL ADENOPATHY LIKELY REACTIVE ASHD NIDDM ACUTE KIDNEY INJURY PLAN ABX INHALED BRONCHODILATORS O2 CULTURES IVF F/U CHEST CT 6-8 WKS TO CONFIRM RESOLUTION OF INFILTRATES MONITOR LYTES,RENAL FUNCTION DR MORRISSEY Problem List - Problems (1) Hilar adenopathy Code(s): R59.0 - LOCALIZED ENLARGED LYMPH NODES (2) COPD (chronic obstructive pulmonary disease) Code(s): J44.9 - CHRONIC OBSTRUCTIVE PULMONARY DISEASE, UNSPECIFIED (3) Lymphadenopathy Code(s): R59.1 - GENERALIZED ENLARGED LYMPH NODES (4) Pneumonia Code(s): J18.9 - PNEUMONIA, UNSPECIFIED ORGANISM (5) Diabetes mellitus Code(s): E11.9 - TYPE 2 DIABETES MELLITUS WITHOUT COMPLICATIONS (6) Hyperlipemia Code(s): E78.5 - HYPERLIPIDEMIA, UNSPECIFIED (7) Hypertension Code(s): I10 - ESSENTIAL (PRIMARY) HYPERTENSION (8) Hypoxemia Code(s): R09.02 - HYPOXEMIA (9) [id number] kidney injury Code(s): N17.9 - ACUTE KIDNEY FAILURE, UNSPECIFIED; N18.9 - CHRONIC KIDNEY DISEASE, UNSPECIFIED
--- NOTE | 2018-07-26 16:44 | CONS ---
DATE OF CONSULTATION: 07/26/2018 PULMONARY CONSULTATION REFERRING PHYSICIAN: Shahida Melendez M.D. HISTORY OF PRESENT ILLNESS: The patient is a 78-year-old male with a past medical history of ASHD, COPD, noninsulin dependent diabetes mellitus, hypertension, gout, admitted to [facility] with complaint of 3-4 day history of chills, fever, also complaining of mid back pain. In the emergency room, he was found to be febrile to 101.2, tachycardic and mildly hypoxemic with room air of 92%. He underwent a CT scan to chest which revealed a right upper lobe consolidation. He is also noted to have multiple bullae within the upper lobes as well as mildly enlarged right paratracheal node. On admission, he was also noted to be mildly elevated BUN and creatinine and elevated lactate level which was corrected with IV fluid. Patient was placed on broad-spectrum antibiotics and transferred to medical floor for further management. Patient denies any hemoptysis, denies any chest pain or palpitations, cough. Denies any significant sputum production. He denies any history of occupational exposures. No history of recent travel. He denies history of tobacco use. PAST MEDICAL HISTORY: Again hypertension, ASHD, COPD, noninsulin dependent diabetes mellitus, gout. REVIEW OF SYSTEMS: Positive cough. Positive shortness of breath. Positive fever. Positive chills. No hemoptysis. No abdominal pain. No lower extremity edema. CURRENT MEDICATIONS: Include Flomax, Cozaar, Zithromax, ceftriaxone, Januvia, Lipitor, NovoLog, Levemir, Plavix, Glucotrol. PHYSICAL EXAMINATION: GENERAL: The patient is an obese male, wide awake, alert, in no acute distress. He is afebrile. T-max is 101.2, currently 99.4. VITAL SIGNS: Blood pressure 129/67, respiratory rate 20, O2 saturation is 96% on 2 L. HEENT: Normocephalic, atraumatic. NECK: Supple. HEART: Regular S1, S2. CHEST: A few scattered bilateral rhonchi. ABDOMEN: Soft, bowel sounds positive. EXTREMITIES: No cyanosis, edema. LABORATORY: INR . WBC is 7.9, hemoglobin 14.4, hematocrit 42.5, platelet count of 159,000. Venous blood gas 7.39, 46, 31, 24. Chemistries: BUN 20, creatinine 1.2, initial lactate was 2.2, followup is 1.7. AST is 127, ALT is 73, alkaline phosphatase 120. Chest CT: bolus changes bilaterally in the upper lobes with right upper lobe consolidation with elevated right paratracheal lymph node. IMPRESSION: 1. Right upper lobe pneumonia, community acquired. 2. Hypoxemia secondary to pneumonia. 3. Chronic obstructive pulmonary disease. 4. Right paratracheal adenopathy, likely reactive. 5. Arteriosclerotic heart disease. 6. Noninsulin dependent diabetes mellitus. 7. Acute kidney injury. PLAN: Antibiotics. Supplemental O2. Inhaled bronchodilators. Obtain cultures. IV fluid. Obtain followup chest CT in 4-6 weeks, confirm resolution of infiltrates. Monitor electrolytes. Renal function. LOY MORRISSEY M.D. [id number]
[2018-07-26] MEDS ORDERED: INSULIN (NOVOLOG) ASPART 100 UNITS/ML 10ML VIAL ONE (16:49)
[2018-07-26] MEDS: INSULIN SLIDING SCALE (NOVOLOG) 1 VIAL SQ SCH ×2 (16:50→21:08)
[2018-07-26 19:12] LABS: URINE APPEARANCE CLEAR; URINE BILIRUBIN NEGATIVE (NEGATIVE); URINE COLOR YELLOW; URINE GLUCOSE (UA) NEGATIVE (NEGATIVE); URINE KETONE NEGATIVE (NEGATIVE); URINE LEUK ESTERASE NEGATIVE (NEGATIVE); URINE NITRITE NEGATIVE (NEGATIVE); URINE PROTEIN NEGATIVE (NEGATIVE)
[2018-07-26] MEDS: ATORVASTATIN CA 40 MG TABLET (FP) PO SCH (21:08)
[2018-07-27] MEDS: INSULIN (LEVEMIR) 100 UNITS/ML UNITS SQ SCH (06:19)
[2018-07-27] MEDS: glipiZIDE-XL 5 MG TAB.ER.24 PO SCH (06:19)
[2018-07-27] MEDS: sitaGLIPtin PHOSPHATE 50 MG TABLET PO SCH (06:19)
[2018-07-27] MEDS: INSULIN SLIDING SCALE (NOVOLOG) 1 VIAL SQ SCH ×4 (06:20→21:44)
[2018-07-27] MEDS ORDERED: INSULIN (NOVOLOG) ASPART 100 UNITS/ML 10ML VIAL ONE ×2 (06:40→11:10)
[2018-07-27 08:38] LABS: BASO % 0.5 % (0-2.0); EOS % 0.6 % (0-4.5); HEMATOCRIT 37.8 % (35.4-49); HEMOGLOBIN 12.8 GM/dL (11.7-16.9); MCH 31.5 pg (25.7-33.7); MCHC 33.8 g/dl (32.0-35.9); MEAN CELL VOLUME 93.1 fl (80-96); MONO % 14.1 % (3.8-10.2); NEUT % 50.8 % (42.8-82.8); PLATELET COUNT 148 K/MM3 (134-434); RBC 4.06 M/mm3 (4.00-5.60); RDW 12.9 % (11.9-15.9); WHITE BLOOD COUNT 5.2 K/mm3 (4.0-10.0)
[2018-07-27 09:07] LABS: ALBUMIN 3.2 g/dl (3.4-5.0); ALK PHOS 104 U/L (45-117); ANION GAP 6 MMOL/L (8-16); BILIRUBIN,TOTAL 0.7 mg/dL (0.2-1); BLOOD UREA NITROGEN 19 mg/dL (7-18); CALCIUM 8.5 mg/dL (8.5-10.1); CHLORIDE 106 mmol/L (98-107); CO2 27 mmol/L (21-32); CREATININE 1.2 mg/dL (0.55-1.3); GLUCOSE,RANDOM 156 mg/dL (74-106); POTASSIUM 4.4 mmol/L (3.5-5.1); SGOT/AST 59 U/L (15-37); SGPT/ALT 55 U/L (13-61); SODIUM 139 mmol/L (136-145); TOT PROT 6.6 g/dl (6.4-8.2)
[2018-07-27] MEDS ORDERED: PT OWN MED DRAWER 7, Y5N ONE ×3 (09:42→17:39)
[2018-07-27] MEDS ORDERED: DEXTROSE 5%-WATER 100 ML IVPB ONE (09:42)
[2018-07-27] MEDS: TAMSULOSIN HCL 0.4 MG CAP PO SCH (09:45)
[2018-07-27] MEDS: CLOPIDOGREL BISULFATE 75 MG TABLET (FP) PO SCH (09:45)
[2018-07-27] MEDS: LOSARTAN POTASSIUM 50 MG TABLET (FP) PO SCH (09:45)
[2018-07-27] MEDS: CEFTRIAXONE 2 GM in DEXTROSE 5%-WATER 100 ML IVPB SCH (09:46)
[2018-07-27] MEDS: AZITHROMYCIN IVPB 250 MG in DEXTROSE 5%-WATER - 250 ML IVPB SCH (09:46)
--- NOTE | 2018-07-27 11:04 | PN ---
Progress Note (short form) - Note Progress Note: PULMONARY States he feels better today. Less cough. No fevers recorded but feels subjective fevers. Vital Signs Period Temp Pulse Resp BP Sys/Alexander Pulse Ox Last 24 Hr 98.2 F-98.5 F 80-98 20-21 104-148/52-70 96 Gen: NAD at rest Heart: RRR Lung: decreased breath sounds at the bases Abd: soft, nontender Ext: no edema CBC, BMP 07/27/18 07:40 07/27/18 07:40 Active Medications Atorvastatin Calcium (Lipitor -) 40 mg PO HS [facility] Last Admin: 07/26/18 21:08 Dose: 40 mg Clopidogrel Bisulfate (Plavix -) 75 mg PO DAILY [facility] Last Admin: 07/27/18 09:45 Dose: 75 mg Glipizide (Glucotrol Xl -) 5 mg PO AM [facility] Last Admin: 07/27/18 06:19 Dose: 5 mg Azithromycin 250 mg/ Dextrose 250 mls @ 250 mls/hr IVPB DAILY [facility] Last Admin: 07/27/18 09:46 Dose: 250 mls/hr Ceftriaxone Sodium 2 gm/ (Dextrose) 100 mls @ 200 mls/hr IVPB DAILY [facility]; Protocol Last Admin: 07/27/18 09:46 Dose: 200 mls/hr Insulin Aspart (Novolog Vial Sliding Scale -) 1 vial SQ ACHS [facility]; Protocol Last Admin: 07/27/18 06:20 Dose: 4 unit Insulin Detemir (Levemir Vial) 20 units SQ AM [facility] Last Admin: 07/27/18 06:19 Dose: 20 units Losartan Potassium (Cozaar -) 100 mg PO DAILY JOVANA Last Admin: 07/27/18 09:45 Dose: 100 mg Sitagliptin Phosphate (Januvia -) 50 mg PO DAILY@0700 [facility] Last Admin: 07/27/18 06:19 Dose: 50 mg Tamsulosin HCl (Flomax -) 0.4 mg PO DAILY@0830 [facility] Last Admin: 07/27/18 09:45 Dose: 0.4 mg A/P Pneumonia COPD Paratracheal Lymphadenopathy CAD DM - continue antibiotics - inhaled bronchodilators - O2 as needed - outpt f/u of chest imaging - DVT prophylaxis
--- NOTE | 2018-07-27 14:00 | PN ---
Progress Note, Physician Chief Complaint: patient seen and examined - Current Medication List Current Medications: Active Medications Atorvastatin Calcium (Lipitor -) 40 mg PO HS [facility] Last Admin: 07/26/18 21:08 Dose: 40 mg Clopidogrel Bisulfate (Plavix -) 75 mg PO DAILY [facility] Last Admin: 07/27/18 09:45 Dose: 75 mg Glipizide (Glucotrol Xl -) 5 mg PO AM [facility] Last Admin: 07/27/18 06:19 Dose: 5 mg Azithromycin 250 mg/ Dextrose 250 mls @ 250 mls/hr IVPB DAILY [facility] Last Admin: 07/27/18 09:46 Dose: 250 mls/hr Ceftriaxone Sodium 2 gm/ (Dextrose) 100 mls @ 200 mls/hr IVPB DAILY [facility]; Protocol Last Admin: 07/27/18 09:46 Dose: 200 mls/hr Insulin Aspart (Novolog Vial Sliding Scale -) 1 vial SQ ACHS [facility]; Protocol Last Admin: 07/27/18 11:11 Dose: 5 units Insulin Detemir (Levemir Vial) 20 units SQ AM [facility] Last Admin: 07/27/18 06:19 Dose: 20 units Losartan Potassium (Cozaar -) 100 mg PO DAILY [facility] Last Admin: 07/27/18 09:45 Dose: 100 mg Sitagliptin Phosphate (Januvia -) 50 mg PO DAILY@0700 [facility] Last Admin: 07/27/18 06:19 Dose: 50 mg Tamsulosin HCl (Flomax -) 0.4 mg PO DAILY@0830 [facility] Last Admin: 07/27/18 09:45 Dose: 0.4 mg - Objective Vital Signs: Vital Signs Temperature 98.5 F 07/27/18 08:00 Pulse Rate 98 H 07/27/18 08:00 Respiratory Rate 21 H 07/27/18 08:00 Blood Pressure 104/52 L 07/27/18 08:00 O2 Sat by Pulse Oximetry (%) 96 07/26/18 22:00 Constitutional: Yes: Calm Cardiovascular: Yes: Regular Rate and Rhythm, S1, S2 Respiratory: Yes: CTA Bilaterally, Diminished (on left side) Gastrointestinal: Yes: Normal Bowel Sounds, Soft Labs: CBC, BMP 07/27/18 07:40 07/27/18 07:40 INR, PTT INR 1.13 (0.83-1.09) H 06/04/19 20:31 Problem List - Problems (1) Pneumonia Assessment/Plan: iv abx Code(s): J18.9 - PNEUMONIA, UNSPECIFIED ORGANISM (2) Diabetes mellitus Assessment/Plan: januvia ,glucotrol and levemir bgm sliding scale Code(s): E11.9 - TYPE 2 DIABETES MELLITUS WITHOUT COMPLICATIONS Qualifiers: Diabetes mellitus type: type 2
--- NOTE | 2018-07-27 15:22 | PN ---
Progress Note, Physician History of Present Illness: Pt seen and examined at bedside. He is awake and alert. He denies shortness of breath. - Current Medication List Current Medications: Active Medications Atorvastatin Calcium (Lipitor -) 40 mg PO HS [facility] Last Admin: 07/26/18 21:08 Dose: 40 mg Clopidogrel Bisulfate (Plavix -) 75 mg PO DAILY [facility] Last Admin: 07/27/18 09:45 Dose: 75 mg Glipizide (Glucotrol Xl -) 5 mg PO AM [facility] Last Admin: 07/27/18 06:19 Dose: 5 mg Azithromycin 250 mg/ Dextrose 250 mls @ 250 mls/hr IVPB DAILY [facility] Last Admin: 07/27/18 09:46 Dose: 250 mls/hr Ceftriaxone Sodium 2 gm/ (Dextrose) 100 mls @ 200 mls/hr IVPB DAILY [facility]; Protocol Last Admin: 07/27/18 09:46 Dose: 200 mls/hr Insulin Aspart (Novolog Vial Sliding Scale -) 1 vial SQ ACHS [facility]; Protocol Last Admin: 07/27/18 11:11 Dose: 5 units Insulin Detemir (Levemir Vial) 20 units SQ AM [facility] Last Admin: 07/27/18 06:19 Dose: 20 units Losartan Potassium (Cozaar -) 100 mg PO DAILY [facility] Last Admin: 07/27/18 09:45 Dose: 100 mg Sitagliptin Phosphate (Januvia -) 50 mg PO DAILY@0700 [facility] Last Admin: 07/27/18 06:19 Dose: 50 mg Tamsulosin HCl (Flomax -) 0.4 mg PO DAILY@0830 [facility] Last Admin: 07/27/18 09:45 Dose: 0.4 mg - Objective Vital Signs: Vital Signs Temperature 98.5 F 07/27/18 08:00 Pulse Rate 98 H 07/27/18 08:00 Respiratory Rate 21 H 07/27/18 08:00 Blood Pressure 104/52 L 07/27/18 08:00 O2 Sat by Pulse Oximetry (%) 96 07/26/18 22:00 Constitutional: Yes: Calm Eyes: Yes: Conjunctiva Clear HENT: Yes: Atraumatic Cardiovascular: Yes: S1, S2 Respiratory: Yes: CTA Bilaterally Gastrointestinal: Yes: Normal Bowel Sounds, Soft Genitourinary: Yes: WNL Musculoskeletal: Yes: WNL Edema: No Neurological: Yes: Oriented Psychiatric: Yes: Oriented Labs: CBC, BMP 07/27/18 07:40 07/27/18 07:40 INR, PTT INR 1.13 (0.83-1.09) H 07/25/18 20:31 Problem List - Problems (1) HOMERO (acute kidney injury) Code(s): N17.9 - ACUTE KIDNEY FAILURE, UNSPECIFIED (2) COPD (chronic obstructive pulmonary disease) Code(s): J44.9 - CHRONIC OBSTRUCTIVE PULMONARY DISEASE, UNSPECIFIED (3) Diabetes mellitus Code(s): E11.9 - TYPE 2 DIABETES MELLITUS WITHOUT COMPLICATIONS Qualifiers: Diabetes mellitus type: type 2 Assessment/Plan Current Medications Generic Name Dose Route Start Last Admin Trade Name Freq PRN Reason Stop Dose Admin Atorvastatin Calcium 40 mg 07/26/18 22:00 07/26/18 21:08 Lipitor - PO 40 mg HS JOVANA Administration Clopidogrel Bisulfate 75 mg 07/26/18 10:00 07/27/18 09:45 Plavix - PO 75 mg DAILY JOVANA Administration Glipizide 5 mg 07/26/18 07:00 07/27/18 06:19 Glucotrol Xl - PO 5 mg AM JOVANA Administration Azithromycin 250 mg/ Dextrose 250 mls @ 250 mls/hr 07/26/18 10:00 07/27/18 09 :46 IVPB 250 mls/hr DAILY JOVANA Administration Ceftriaxone Sodium 2 gm/ 100 mls @ 200 mls/hr 07/27/18 10:00 07/27/18 09:46 Dextrose IVPB 200 mls/hr DAILY JOVANA Administration Protocol Insulin Aspart 1 vial 07/26/18 16:30 07/27/18 11:11 Novolog Vial Sliding Scale - SQ 5 units ACHS JOVANA Administration Protocol Insulin Detemir 20 units 07/27/18 07:00 07/27/18 06:19 Levemir Vial SQ 20 units AM JOVANA Administration Losartan Potassium 100 mg 07/26/18 10:00 07/27/18 09:45 Cozaar - PO 100 mg DAILY JOVANA Administration Sitagliptin Phosphate 50 mg 07/27/18 07:00 07/27/18 06:19 Januvia - PO 50 mg DAILY@0700 JOVANA Administration Tamsulosin HCl 0.4 mg 07/26/18 08:30 07/27/18 09:45 Flomax - PO 0.4 mg DAILY@0830 JOVANA Administration Laboratory Tests 07/26/18 07/27/18 18:15 07:40 Creatine Kinase 809 H Urine Protein Negative Urine Blood Negative Impression 1. HOMERO 2. DM 3. hypoxia 4. PNA 5. HTN 6. lactic acidosis 7. simple renal cyst 8. mild rhabdo Plan - renal ultrasound reviewed - pick pulling machine tender is improving - avoid nsaids - will start gentle hydration for mildly elevated cpk - repeat labs in am
[2018-07-27] MEDS ORDERED: SODIUM CHLORIDE 0.45% 1,000 ML IV SCH (15:30)
[2018-07-27] MEDS: ATORVASTATIN CA 40 MG TABLET (FP) PO SCH (21:44)
[2018-07-28] MEDS: INSULIN (LEVEMIR) 100 UNITS/ML UNITS SQ SCH (06:07)
[2018-07-28] MEDS: glipiZIDE-XL 5 MG TAB.ER.24 PO SCH (06:07)
[2018-07-28] MEDS: sitaGLIPtin PHOSPHATE 50 MG TABLET PO SCH (06:07)
[2018-07-28] MEDS: INSULIN SLIDING SCALE (NOVOLOG) 1 VIAL SQ SCH ×4 (06:09→21:12)
[2018-07-28] MEDS ORDERED: PT OWN MED DRAWER 7, Y5N ONE ×3 (06:20→11:19)
[2018-07-28 07:37] LABS: BASO % 0.8 % (0-2.0); EOS % 0.8 % (0-4.5); HEMATOCRIT 36.2 % (35.4-49); HEMOGLOBIN 12.3 GM/dL (11.7-16.9); LYMPH % 36.6 % (8-40); MCH 31.5 pg (25.7-33.7); MEAN CELL VOLUME 92.5 fl (80-96); MEAN PLT VOLUME 8.3 fl (7.5-11.1); MONO % 10.6 % (3.8-10.2); NEUT % 51.2 % (42.8-82.8); RBC 3.91 M/mm3 (4.00-5.60); RDW 13.3 % (11.9-15.9); WHITE BLOOD COUNT 5.4 K/mm3 (4.0-10.0)
[2018-07-28 08:58] LABS: ALBUMIN 3.1 g/dl (3.4-5.0); ALK PHOS 112 U/L (45-117); ANION GAP 8 MMOL/L (8-16); BILIRUBIN,TOTAL 0.5 mg/dL (0.2-1); BLOOD UREA NITROGEN 22 mg/dL (7-18); CALCIUM 8.6 mg/dL (8.5-10.1); CHLORIDE 105 mmol/L (98-107); CO2 26 mmol/L (21-32); CREATININE 1.2 mg/dL (0.55-1.3); GLUCOSE,RANDOM 184 mg/dL (74-106); POTASSIUM 4.4 mmol/L (3.5-5.1); SGOT/AST 44 U/L (15-37); SGPT/ALT 53 U/L (13-61); SODIUM 139 mmol/L (136-145); TOT PROT 6.2 g/dl (6.4-8.2)
[2018-07-28] MEDS ORDERED: DEXTROSE 5%-WATER 100 ML IVPB ONE (09:06)
[2018-07-28] MEDS: CEFTRIAXONE 2 GM in DEXTROSE 5%-WATER 100 ML IVPB SCH (09:07)
[2018-07-28] MEDS: CLOPIDOGREL BISULFATE 75 MG TABLET (FP) PO SCH (09:07)
[2018-07-28] MEDS: TAMSULOSIN HCL 0.4 MG CAP PO SCH (09:07)
[2018-07-28] MEDS: LOSARTAN POTASSIUM 50 MG TABLET (FP) PO SCH (09:07)
[2018-07-28] MEDS ORDERED: INSULIN (NOVOLOG) ASPART 100 UNITS/ML 10ML VIAL ONE ×4 (11:11→21:01)
[2018-07-28] MEDS: AZITHROMYCIN IVPB 250 MG in DEXTROSE 5%-WATER - 250 ML IVPB SCH (12:40)
--- NOTE | 2018-07-28 12:42 | PN ---
Progress Note, Physician Chief Complaint: patient seen and examined on iv abx - Current Medication List Current Medications: Active Medications Atorvastatin Calcium (Lipitor -) 40 mg PO HS [facility] Last Admin: 07/27/18 21:44 Dose: 40 mg Clopidogrel Bisulfate (Plavix -) 75 mg PO DAILY [facility] Last Admin: 07/28/18 09:07 Dose: 75 mg Glipizide (Glucotrol Xl -) 5 mg PO AM [facility] Last Admin: 07/28/18 06:07 Dose: 5 mg Azithromycin 250 mg/ Dextrose 250 mls @ 250 mls/hr IVPB DAILY [facility] Last Admin: 07/27/18 09:46 Dose: 250 mls/hr Ceftriaxone Sodium 2 gm/ (Dextrose) 100 mls @ 200 mls/hr IVPB DAILY [facility]; Protocol Last Admin: 07/28/18 09:07 Dose: 200 mls/hr Insulin Aspart (Novolog Vial Sliding Scale -) 1 vial SQ ACHS [facility]; Protocol Last Admin: 07/28/18 11:22 Dose: 6 units Insulin Detemir (Levemir Vial) 20 units SQ AM [facility] Last Admin: 07/28/18 06:07 Dose: 20 units Losartan Potassium (Cozaar -) 100 mg PO DAILY [facility] Last Admin: 07/28/18 09:07 Dose: 100 mg Sitagliptin Phosphate (Januvia -) 50 mg PO DAILY@0700 [facility] Last Admin: 07/28/18 06:07 Dose: 50 mg Tamsulosin HCl (Flomax -) 0.4 mg PO DAILY@0830 [facility] Last Admin: 07/28/18 09:07 Dose: 0.4 mg - Objective Vital Signs: Vital Signs Temperature 98.9 F 07/28/18 05:00 Pulse Rate 98 H 07/28/18 05:00 Respiratory Rate 20 07/28/18 05:00 Blood Pressure 115/69 07/28/18 05:00 O2 Sat by Pulse Oximetry (%) 99 07/27/18 21:00 Constitutional: Yes: Calm Cardiovascular: Yes: Regular Rate and Rhythm, S1, S2 Respiratory: Yes: CTA Bilaterally, Diminished (at bases) Gastrointestinal: Yes: Normal Bowel Sounds, Soft Edema: No Neurological: Yes: Alert Labs: CBC, BMP 07/28/18 05:12 07/28/18 05:12 INR, PTT INR 1.13 (0.83-1.09) H 07/25/18 20:31 Problem List - Problems (1) Pneumonia Assessment/Plan: iv abx per ID lactic acidosis improved ivf fluids chest ct focal opacity in right upper lobe Code(s): J18.9 - PNEUMONIA, UNSPECIFIED ORGANISM (2) Diabetes mellitus Assessment/Plan: januvia ,glucotrol and levemir bgm sliding scale Code(s): E11.9 - TYPE 2 DIABETES MELLITUS WITHOUT COMPLICATIONS Qualifiers: Diabetes mellitus type: type 2 (3) HOMERO (acute kidney injury) Assessment/Plan: ivf fluids bun/cr improved Code(s): N17.9 - ACUTE KIDNEY FAILURE, UNSPECIFIED (4) BPH (benign prostatic hyperplasia) Assessment/Plan: flomax Code(s): N40.0 - BENIGN PROSTATIC HYPERPLASIA WITHOUT LOWER URINRY TRACT SYMP
[2018-07-28 12:47] LABS: PLATELET COUNT 155 K/MM3 (134-434)
--- NOTE | 2018-07-28 13:07 | PN ---
Progress Note, Physician History of Present Illness: PULMONARY ALERT,FEELING BETTER,LESS CONGESTED,LESS DYSPNEIC - Current Medication List Current Medications: Active Medications Atorvastatin Calcium (Lipitor -) 40 mg PO HS [facility] Last Admin: 07/27/18 21:44 Dose: 40 mg Clopidogrel Bisulfate (Plavix -) 75 mg PO DAILY [facility] Last Admin: 07/28/18 09:07 Dose: 75 mg Glipizide (Glucotrol Xl -) 5 mg PO AM [facility] Last Admin: 07/28/18 06:07 Dose: 5 mg Azithromycin 250 mg/ Dextrose 250 mls @ 250 mls/hr IVPB DAILY [facility] Last Admin: 07/28/18 12:40 Dose: 250 mls/hr Ceftriaxone Sodium 2 gm/ (Dextrose) 100 mls @ 200 mls/hr IVPB DAILY [facility]; Protocol Last Admin: 07/28/18 09:07 Dose: 200 mls/hr Insulin Aspart (Novolog Vial Sliding Scale -) 1 vial SQ ACHS [facility]; Protocol Last Admin: 07/28/18 11:22 Dose: 6 units Insulin Detemir (Levemir Vial) 20 units SQ AM [facility] Last Admin: 07/28/18 06:07 Dose: 20 units Losartan Potassium (Cozaar -) 100 mg PO DAILY [facility] Last Admin: 07/28/18 09:07 Dose: 100 mg Sitagliptin Phosphate (Januvia -) 50 mg PO DAILY@0700 [facility] Last Admin: 07/28/18 06:07 Dose: 50 mg Tamsulosin HCl (Flomax -) 0.4 mg PO DAILY@0830 [facility] Last Admin: 07/28/18 09:07 Dose: 0.4 mg - Objective Vital Signs: Vital Signs Temperature 98.8 F 07/28/18 10:00 Pulse Rate 93 H 07/28/18 10:00 Respiratory Rate 07/28/18 10:00 Blood Pressure 119/65 07/28/18 10:00 O2 Sat by Pulse Oximetry (%) 99 07/28/18 09:00 Constitutional: Yes: Well Nourished, Calm Eyes: Yes: WNL HENT: Yes: WNL Neck: Yes: WNL Cardiovascular: Yes: Regular Rate and Rhythm, S1, S2 Respiratory: Yes: Rhonchi (FEW SCATTERED RHONCHI) Gastrointestinal: Yes: Normal Bowel Sounds, Soft Extremities: Yes: WNL Edema: No Labs: CBC, BMP Problem List - Problems (1) Hilar adenopathy Code(s): R59.0 - LOCALIZED ENLARGED LYMPH NODES (2) COPD (chronic obstructive pulmonary disease) Code(s): J44.9 - CHRONIC OBSTRUCTIVE PULMONARY DISEASE, UNSPECIFIED (3) Lymphadenopathy Code(s): R59.1 - GENERALIZED ENLARGED LYMPH NODES (4) Pneumonia Code(s): J18.9 - PNEUMONIA, UNSPECIFIED ORGANISM (5) Diabetes mellitus Code(s): E11.9 - TYPE 2 DIABETES MELLITUS WITHOUT COMPLICATIONS Qualifiers: Diabetes mellitus type: type 2 (6) Hyperlipemia Code(s): E78.5 - HYPERLIPIDEMIA, UNSPECIFIED (7) Hypertension Code(s): I10 - ESSENTIAL (PRIMARY) HYPERTENSION (8) Hypoxemia Code(s): R09.02 - HYPOXEMIA (9) Cerfy-ig-wyedzco kidney injury Code(s): N17.9 - ACUTE KIDNEY FAILURE, UNSPECIFIED; N18.9 - CHRONIC KIDNEY DISEASE, UNSPECIFIED Assessment/Plan IMP RUL PNEUMONIA HYPOXEMIA SECONDARY TO PNEUMONIA COPD PARATRACHEAL ADENOPATHY LIKELY REACTIVE ASHD NIDDM ACUTE KIDNEY INJURY IMPROVING PLAN ABX INHALED BRONCHODILATORS O2 IVF F/U CHEST CT 6-8 WKS TO CONFIRM RESOLUTION OF INFILTRATES MONITOR LYTES,RENAL FUNCTION DR MORRISSEY Problem List - Problems (1) Hilar adenopathy Code(s): R59.0 - LOCALIZED ENLARGED LYMPH NODES (2) COPD (chronic obstructive pulmonary disease) Code(s): J44.9 - CHRONIC OBSTRUCTIVE PULMONARY DISEASE, UNSPECIFIED (3) Lymphadenopathy Code(s): R59.1 - GENERALIZED ENLARGED LYMPH NODES (4) Pneumonia Code(s): J18.9 - PNEUMONIA, UNSPECIFIED ORGANISM (5) Diabetes mellitus Code(s): E11.9 - TYPE 2 DIABETES MELLITUS WITHOUT COMPLICATIONS (6) Hyperlipemia Code(s): E78.5 - HYPERLIPIDEMIA, UNSPECIFIED (7) Hypertension Code(s): I10 - ESSENTIAL (PRIMARY) HYPERTENSION (8) Hypoxemia Code(s): R09.02 - HYPOXEMIA (9) Jzwrf-yw-khfbucs kidney injury Code(s): N17.9 - ACUTE KIDNEY FAILURE, UNSPECIFIED; N18.9 - CHRONIC KIDNEY DISEASE, UNSPECIFIED
--- NOTE | 2018-07-28 14:37 | PN ---
Progress Note, Physician History of Present Illness: Pt seen and examined at bedside. He says that he feels much better. He denies shortness of breath. - Current Medication List Current Medications: Active Medications Atorvastatin Calcium (Lipitor -) 40 mg PO HS [facility] Last Admin: 07/27/18 21:44 Dose: 40 mg Clopidogrel Bisulfate (Plavix -) 75 mg PO DAILY [facility] Last Admin: 07/28/18 09:07 Dose: 75 mg Glipizide (Glucotrol Xl -) 5 mg PO AM [facility] Last Admin: 07/28/18 06:07 Dose: 5 mg Azithromycin 250 mg/ Dextrose 250 mls @ 250 mls/hr IVPB DAILY [facility] Last Admin: 07/28/18 12:40 Dose: 250 mls/hr Ceftriaxone Sodium 2 gm/ (Dextrose) 100 mls @ 200 mls/hr IVPB DAILY [facility]; Protocol Last Admin: 07/28/18 09:07 Dose: 200 mls/hr Insulin Aspart (Novolog Vial Sliding Scale -) 1 vial SQ ACHS [facility]; Protocol Last Admin: 07/28/18 11:22 Dose: 6 units Insulin Detemir (Levemir Vial) 20 units SQ AM [facility] Last Admin: 07/28/18 06:07 Dose: 20 units Losartan Potassium (Cozaar -) 100 mg PO DAILY [facility] Last Admin: 07/28/18 09:07 Dose: 100 mg Sitagliptin Phosphate (Januvia -) 50 mg PO DAILY@0700 [facility] Last Admin: 07/28/18 06:07 Dose: 50 mg Tamsulosin HCl (Flomax -) 0.4 mg PO DAILY@0830 [facility] Last Admin: 07/28/18 09:07 Dose: 0.4 mg - Objective Vital Signs: Vital Signs Temperature 98.8 F 07/28/18 10:00 Pulse Rate 93 H 07/28/18 10:00 Respiratory Rate 07/28/18 10:00 Blood Pressure 119/65 07/28/18 10:00 O2 Sat by Pulse Oximetry (%) 99 07/28/18 09:00 Constitutional: Yes: Calm Eyes: Yes: Conjunctiva Clear HENT: Yes: Atraumatic Neck: Yes: Supple Cardiovascular: Yes: S2 Respiratory: Yes: CTA Bilaterally Gastrointestinal: Yes: Soft Musculoskeletal: Yes: WNL Edema: No Neurological: Yes: Oriented Psychiatric: Yes: Oriented Labs: CBC, BMP 07/28/18 05:12 07/28/18 05:12 INR, PTT INR 1.13 (0.83-1.09) H 07/25/18 20:31 Problem List - Problems (1) HOMERO (acute kidney injury) Code(s): N17.9 - ACUTE KIDNEY FAILURE, UNSPECIFIED (2) COPD (chronic obstructive pulmonary disease) Code(s): J44.9 - CHRONIC OBSTRUCTIVE PULMONARY DISEASE, UNSPECIFIED (3) Diabetes mellitus Code(s): E11.9 - TYPE 2 DIABETES MELLITUS WITHOUT COMPLICATIONS Qualifiers: Diabetes mellitus type: type 2 Assessment/Plan Current Medications Generic Name Dose Route Start Last Admin Trade Name Freq PRN Reason Stop Dose Admin Atorvastatin Calcium 40 mg 07/26/18 22:00 07/27/18 21:44 Lipitor - PO 40 mg HS JOVANA Administration Clopidogrel Bisulfate 75 mg 07/26/18 10:00 07/28/18 09:07 Plavix - PO 75 mg DAILY JOVANA Administration Glipizide 5 mg 07/26/18 07:00 07/28/18 06:07 Glucotrol Xl - PO 5 mg AM JOVANA Administration Azithromycin 250 mg/ Dextrose 250 mls @ 250 mls/hr 07/26/18 10:00 07/28/18 12 :40 IVPB 250 mls/hr DAILY JOVANA Administration Ceftriaxone Sodium 2 gm/ 100 mls @ 200 mls/hr 07/27/18 10:00 07/28/18 09:07 Dextrose IVPB 200 mls/hr DAILY JOVANA Administration Protocol Insulin Aspart 1 vial 07/26/18 16:30 07/28/18 11:22 Novolog Vial Sliding Scale - SQ 6 units ACHS JOVANA Administration Protocol Insulin Detemir 20 units 07/27/18 07:00 07/28/18 06:07 Levemir Vial SQ 20 units AM JOVANA Administration Losartan Potassium 100 mg 07/26/18 10:00 07/28/18 09:07 Cozaar - PO 100 mg DAILY J[facility]NA Administration Sitagliptin Phosphate 50 mg 07/27/18 07:00 07/28/18 06:07 Januvia - PO 50 mg DAILY@0700 JOVANA Administration Tamsulosin HCl 0.4 mg 07/26/18 08:30 07/28/18 09:07 Flomax - PO 0.4 mg DAILY@0830 JOVANA Administration Laboratory Tests 07/27/18 07/28/18 07:40 05:12 Creatine Kinase 809 H 416 H Impression 1. HOMERO 2. DM 3. hypoxia 4. PNA 5. HTN 6. lactic acidosis 7. simple renal cyst 8. mild rhabdo Plan - cpk improving - will give more fluid - repeat labs in am - renal function stabilizing - avoid nsaids
[2018-07-28] MEDS ORDERED: SODIUM CHLORIDE 0.45% 1,000 ML IV SCH (14:45)
--- NOTE | 2018-07-28 15:39 | PN ---
Progress Note, Physician History of Present Illness: AWAKE, ALERT SUPINE IN BED FEELING BETTER NO C/O CHEST PAIN/ DYSPNEA NO C/O COUGH/ SPUTUM AFEBRILE - Current Medication List Current Medications: Active Medications Atorvastatin Calcium (Lipitor -) 40 mg PO HS [facility] Last Admin: 07/27/18 21:44 Dose: 40 mg Clopidogrel Bisulfate (Plavix -) 75 mg PO DAILY [facility] Last Admin: 07/28/18 09:07 Dose: 75 mg Glipizide (Glucotrol Xl -) 5 mg PO AM [facility] Last Admin: 07/28/18 06:07 Dose: 5 mg Azithromycin 250 mg/ Dextrose 250 mls @ 250 mls/hr IVPB DAILY [facility] Last Admin: 07/28/18 12:40 Dose: 250 mls/hr Ceftriaxone Sodium 2 gm/ (Dextrose) 100 mls @ 200 mls/hr IVPB DAILY [facility]; Protocol Last Admin: 07/28/18 09:07 Dose: 200 mls/hr Sodium Chloride (1/2 Normal Saline) 1,000 mls @ 75 mls/hr IV ASDIR [facility] Stop: 07/29/18 00:44 Insulin Aspart (Novolog Vial Sliding Scale -) 1 vial SQ ACHS [facility]; Protocol Last Admin: 07/28/18 11:22 Dose: 6 units Insulin Detemir (Levemir Vial) 20 units SQ AM [facility] Last Admin: 07/28/18 06:07 Dose: 20 units Losartan Potassium (Cozaar -) 100 mg PO DAILY [facility] Last Admin: 07/28/18 09:07 Dose: 100 mg Sitagliptin Phosphate (Januvia -) 50 mg PO DAILY@0700 [facility] Last Admin: 07/28/18 06:07 Dose: 50 mg Tamsulosin HCl (Flomax -) 0.4 mg PO DAILY@0830 [facility] Last Admin: 07/28/18 09:07 Dose: 0.4 mg - Objective Vital Signs: Vital Signs Temperature 98.8 F 07/28/18 10:00 Pulse Rate 93 H 07/28/18 10:00 Respiratory Rate 19 07/28/18 10:00 Blood Pressure 119/65 07/28/18 10:00 O2 Sat by Pulse Oximetry (%) 99 07/28/18 09:00 Constitutional: Yes: No Distress, Obese Cardiovascular: Yes: Regular Rate and Rhythm, S1, S2 Respiratory: Yes: Diminished Gastrointestinal: Yes: Normal Bowel Sounds, Soft, Abdomen, Obese. No: Tenderness Edema: No Labs: CBC, BMP 07/28/18 05:12 07/28/18 05:12 INR, PTT INR 1.13 (0.83-1.09) H 07/25/18 20:31 Assessment/Plan COMMUNITY ACQ V. ATYPICAL PNA EXACERBATION COPD LACTIC ACIDOSIS RESOLVED AZOTEMIA IMPROVED CONTINUE ZITHROMAX/ CEFTRIAXONE
[2018-07-28] MEDS: ATORVASTATIN CA 40 MG TABLET (FP) PO SCH (21:11)
[2018-07-29 05:48] VITALS: BP 135/79; PULSE 89; TEMP 98.1
[2018-07-29] MEDS: INSULIN SLIDING SCALE (NOVOLOG) 1 VIAL SQ SCH ×2 (06:27→11:05)
[2018-07-29] MEDS: INSULIN (LEVEMIR) 100 UNITS/ML UNITS SQ SCH (06:27)
[2018-07-29] MEDS: sitaGLIPtin PHOSPHATE 50 MG TABLET PO SCH (06:27)
[2018-07-29] MEDS: glipiZIDE-XL 5 MG TAB.ER.24 PO SCH (06:27)
[2018-07-29] MEDS ORDERED: PT OWN MED DRAWER 7, Y5N ONE ×2 (06:32→09:03)
[2018-07-29] MEDS ORDERED: INSULIN (NOVOLOG) ASPART 100 UNITS/ML 10ML VIAL ONE (06:32)
[2018-07-29 07:47] LABS: ALBUMIN 3.1 g/dl (3.4-5.0); BILIRUBIN,TOTAL 0.5 mg/dL (0.2-1); BLOOD UREA NITROGEN 16.6 mg/dL (7-18); CALCIUM 8.4 mg/dL (8.5-10.1); POTASSIUM 4.6 mmol/L (3.5-5.1); TOT PROT 6.5 g/dl (6.4-8.2)
[2018-07-29] MEDS: TAMSULOSIN HCL 0.4 MG CAP PO SCH (07:50)
[2018-07-29] MEDS ORDERED: DEXTROSE 5%-WATER 100 ML IVPB ONE (09:04)
[2018-07-29] MEDS: CEFTRIAXONE 2 GM in DEXTROSE 5%-WATER 100 ML IVPB SCH (09:10)
[2018-07-29] MEDS: LOSARTAN POTASSIUM 50 MG TABLET (FP) PO SCH (09:11)
[2018-07-29] MEDS: CLOPIDOGREL BISULFATE 75 MG TABLET (FP) PO SCH (09:11)
--- NOTE | 2018-07-29 09:17 | PN ---
Progress Note, Physician Chief Complaint: Pneumonia HOMERO History of Present Illness: NAD wants to go home - Current Medication List Current Medications: Active Medications Atorvastatin Calcium (Lipitor -) 40 mg PO HS [facility] Last Admin: 07/28/18 21:11 Dose: 40 mg Clopidogrel Bisulfate (Plavix -) 75 mg PO DAILY [facility] Last Admin: 07/28/18 09:07 Dose: 75 mg Glipizide (Glucotrol Xl -) 5 mg PO AM [facility] Last Admin: 07/29/18 06:27 Dose: 5 mg Azithromycin 250 mg/ Dextrose 250 mls @ 250 mls/hr IVPB DAILY [facility] Last Admin: 07/28/18 12:40 Dose: 250 mls/hr Ceftriaxone Sodium 2 gm/ (Dextrose) 100 mls @ 200 mls/hr IVPB DAILY [facility]; Protocol Last Admin: 07/28/18 09:07 Dose: 200 mls/hr Insulin Aspart (Novolog Vial Sliding Scale -) 1 vial SQ ACHS [facility]; Protocol Last Admin: 07/29/18 06:27 Dose: 4 units Insulin Detemir (Levemir Vial) 20 units SQ AM [facility] Last Admin: 07/29/18 06:27 Dose: 20 units Losartan Potassium (Cozaar -) 100 mg PO DAILY [facility] Last Admin: 07/28/18 09:07 Dose: 100 mg Sitagliptin Phosphate (Januvia -) 50 mg PO DAILY@0700 [facility] Last Admin: 07/29/18 06:27 Dose: 50 mg Tamsulosin HCl (Flomax -) 0.4 mg PO DAILY@0830 [facility] Last Admin: 07/29/18 07:50 Dose: 0.4 mg - Objective Vital Signs: Vital Signs Temperature 98.1 F 07/29/18 05:47 Pulse Rate 89 07/29/18 05:47 Respiratory Rate 07/29/18 05:47 Blood Pressure 135/79 07/29/18 05:47 O2 Sat by Pulse Oximetry (%) 99 07/28/18 22:00 Constitutional: Yes: Well Nourished, No Distress, Calm Cardiovascular: Yes: Regular Rate and Rhythm Respiratory: Yes: Regular Gastrointestinal: Yes: Normal Bowel Sounds, Soft Musculoskeletal: Yes: WNL Extremities: Yes: WNL Edema: No Peripheral Pulses WNL: Yes Neurological: Yes: Alert, Oriented Psychiatric: Yes: Alert, Oriented Labs: CBC, BMP 07/28/18 05:12 06/08/19 06:45 INR, PTT INR 1.13 (0.83-1.09) H 07/25/18 20:31 Assessment/Plan (1) Pneumonia Assessment/Plan: UC: Microbiology 07/25/18 20:19 Blood - Peripheral Venous Blood Culture - Preliminary NO GROWTH OBTAINED AFTER 72 HOURS, INCUBATION TO CONTINUE FOR 2 DAYS. 07/25/18 20:19 Blood - Peripheral Venous Blood Culture - Preliminary NO GROWTH OBTAINED AFTER 72 HOURS, INCUBATION TO CONTINUE FOR 2 DAYS. 07/26/18 06:25 Urine - Urine Clean Catch Urine Culture - Final NO GROWTH OBTAINED 07/26/18 11:28 Urine For Antigen Detection Legionella Antigen - Final 07/26/18 11:28 Urine For Antigen Detection Streptococcus pneumoniae Antigen (M - Final -IV abx -ID on board -chest ct focal opacity in right upper lobe, follow up outpatient Code(s): J18.9 - PNEUMONIA, UNSPECIFIED ORGANISM (2) Diabetes mellitus Assessment/Plan: -januvia ,glucotrol -BGM AC HS -Insulin novolog+ levemir -A1c at 9.3 -Endocrine consult -Low sodium diabetic diet Code(s): E11.9 - TYPE 2 DIABETES MELLITUS WITHOUT COMPLICATIONS Qualifiers: Diabetes mellitus type: type 2 (3) HOMERO (acute kidney injury) Assessment/Plan: bun/cr improved -Nephrology on board Code(s): N17.9 - ACUTE KIDNEY FAILURE, UNSPECIFIED (4) BPH (benign prostatic hyperplasia) Assessment/Plan: flomax Code(s): N40.0 - BENIGN PROSTATIC HYPERPLASIA WITHOUT LOWER URINRY TRACT SYMP D/C home
--- NOTE | 2018-07-29 13:31 | PN ---
Progress Note (short form) - Note Progress Note: PULMONARY States he feels better today. Less cough. No fevers recorded. Vital Signs Period Temp Pulse Resp BP Sys/Alexander Pulse Ox Last 24 Hr 98.1 F-98.7 F 89-99 19-20 131-142/76-79 99-99 Gen: NAD at rest Heart: RRR Lung: decreased breath sounds at the bases Abd: soft, nontender Ext: no edema CBC, BMP 07/28/18 05:12 07/29/18 06:45 A/P Pneumonia COPD Paratracheal Lymphadenopathy CAD DM - continue antibiotics - inhaled bronchodilators - O2 as needed - outpt f/u of chest imaging - DVT prophylaxis - d/c planning
== END 2018-07-29 13:18 | disposition home or self-care (01) | DRG 190 ==
LOC: JER 18:20 → JERBED 22:56 → J6S 07-26 05:55
PROVIDERS: ADMIT Internal Medicine; ATTEND Family Medicine
DX: J44.1 Chronic obstructive pulmonary disease with (acute) exacerbation (principal); J18.9 Pneumonia, unspecified organism; E87.2 Acidosis; M62.82 Rhabdomyolysis; J44.0 Chronic obstructive pulmonary disease with (acute) lower respiratory infection; I25.10 Atherosclerotic heart disease of native coronary artery without angina pectoris; Z79.4 Long term (current) use of insulin; I10 Essential (primary) hypertension; N40.0 Benign prostatic hyperplasia without lower urinary tract symptoms; E11.40 Type 2 diabetes mellitus with diabetic neuropathy, unspecified; R59.0 Localized enlarged lymph nodes; E66.9 Obesity, unspecified; Z68.32 Body mass index [BMI] 32.0-32.9, adult; N28.1 Cyst of kidney, acquired
CPT/HCPCS: 36415; 71045-TC-FY; 71250-TC; 74176-TC; 76775-TC; 80048; 80053; 81003; 82436; 82550; 82553; 82565; 82803; 82962; 83036; 83605; 84133; 84300; 84484; 85025; 85610; 85730; 87040; 87086; 87899; 93005; 93010; 99284-25; J7030